=== PATIENT | female | born 1985 | race Two or more races ===

== ENCOUNTER 2018-10-21 10:59 | Emergency (ER) | payer OTHER ==
[2018-10-21 11:13] VITALS: BMI 23.7
--- NOTE | 2018-10-21 12:20 | PDOC ---
History of Present Illness - General Chief Complaint: Headache Stated Complaint: DIZZINESS Time Seen by Provider: 10/21/18 12:06 History Source: Patient, Sibling Exam Limitations: Language Barrier (Chadian only, translation via sister) - History of Present Illness Initial Comments: 33 yo , currently 12 weeks , presenting with neck pain. Chadian speaking only, translation via sister. Woke up out of sleep around 0330 this morning with the neck pain and occipital headache, later developed nausea and vomiting X6 around 0800. Patient went to Urgent Care around 0900 and was told she had "palpitations and high blood pressure", referred to the ED. Has had intermittent nausea and vomiting for the past 2 weeks with poor oral intake despite taking a nausea medication that her OBGYN gave her every day. Endorses dizziness that feels like "the room is spinning" and is triggered by sitting up quickly. Denies any tingling in her fingers, neurological deficits or weakness, diarrhea/ constipation, CP, SOB, abdominal pain, vaginal bleeding, fevers/chills, or recent illness. 10/21/18 12:21 Past History - Past Medical History Allergies/Adverse Reactions: Allergies Allergy/AdvReac Type Severity Reaction Status Date / Time Penicillins Allergy Verified 10/21/18 12:55 Home Medications: Ambulatory Orders Nitrofurantoin Monohyd/M-Cryst [Macrobid -] 100 mg PO BID #14 capsule 10/21/18 Prenat 115/Iron Fum/Folic/Dss [ 19 Tablet] 1 each PO DAILY 10/21/18 COPD: No Thyroid Disease: No - Surgical History Cholecystectomy: Yes - Immunization History Immunization Up to Date: Yes - Suicide/Smoking/Psychosocial Hx Smoking History: Never smoked Information on smoking cessation initiated: No Hx Alcohol Use: No Drug/Substance Use Hx: No Neuro Specific PMHX - Complaint Specific PMHX Glaucoma: No Herniated Disk: No Laminectomy: No Migraine: No Multiple Sclerosis: No Neuropathy: No TIA: No Review of Systems - Review of Systems Able to Perform ROS?: Yes Is the patient limited Syriac proficient: Yes Constitutional: No: Chills, Fever HEENTM: No: Eye Pain, Blurred Vision, Recent change in vision, Double Vision, Ear Discharge, Nose Pain, Tinnitus, Hearing Loss, Throat Swelling, Mouth Pain Respiratory: No: Cough, Orthopnea, Shortness of Breath Cardiac (ROS): No: Chest Pain, Lightheadedness ABD/GI: Yes: Nausea, Poor Fluid Intake, Vomiting. No: Constipated, Diarrhea : No: Burning, Dysuria, Discharge, Frequency Musculoskeletal: Yes: Neck Pain (occipital down through cervical spine only) Neurological: Yes: Headache (occipital), Dizziness ("room is spinning", triggered by standing quickly). No: Numbness, Paresthesia, Pre-Existing Deficit , Seizure, Tingling, Weakness, Ataxia *Physical Exam - Vital Signs Last Vital Signs Temp Pulse Resp BP Pulse Ox 98.5 F 114 H 16 113/70 98 10/21/18 11:09 10/21/18 11:09 10/21/18 11:09 10/21/18 11:09 10/21/18 11:09 - Physical Exam General Appearance: Yes: Appropriately Dressed HEENT: positive: EOMI, HAMMAD, Normal ENT Inspection, Normal Voice, Symmetrical, Pharynx Normal Neck: positive: Trachea midline, Normal Thyroid Respiratory/Chest: positive: Lungs Clear, Normal Breath Sounds. negative: Respiratory Distress Cardiovascular: positive: Regular Rhythm, Tachycardia, Other (sinus arrhythmia) Gastrointestinal/Abdominal: positive: Normal Bowel Sounds, Soft. negative: Tender Musculoskeletal: positive: Normal Inspection, Other (cervical spine tenderness) . negative: CVA Tenderness Extremity: positive: Normal Inspection, Normal Range of Motion Integumentary: positive: Normal Color, Dry, Cold Neurologic: positive: sales utility representative II-XII NML intact, Fully Oriented, Alert, Normal Mood/ Affect, Normal Response, Motor Strength 5/5, Responsive, Finger to Nose (intact) . negative: Facial Droop, Sensory Deficit, Confused, Disoriented ED Treatment Course - LABORATORY CBC & Chemistry Diagram: 10/21/18 12:34 10/21/18 12:34 Medical Decision Making - Medical Decision Making EKG reviewed, NSR, HR 75, no STEMI. 10/21/18 12:07 Dizziness seems consistent with orthostatic hypotension in s/o poor oral intake , N/V, and with elevated HR. Will give 1L NS, 1000mg acetaminophen for ESPINAL/neck pain, Zofran 4mg IVpush, also get CBC CMP UA/UC. 10/21/18 12:44 UA reviewed, prescribed Macrobid BID for a week, sent script to patient's pharmacy. 10/21/18 13:22 CMP reviewed, Glucose 70 10/21/18 13:25 Patient drinking some apple juice and eating some honey latesha crackers. Will hold off on repleting glucose. 10/21/18 13:29 WBC 10.4 10/21/18 13:56 *DC/Admit/Observation/Transfer Diagnosis at time of Disposition: UTI (urinary tract infection) - Discharge Dispostion Disposition: HOME Condition at time of disposition: Improved Decision to Admit order: No - Prescriptions Prescriptions: Nitrofurantoin Monohyd/M-Cryst [Macrobid -] 100 mg PO BID #14 capsule - Referrals Referrals: Georgia Koenig MD [Primary Care Provider] - - Patient Instructions Printed Discharge Instructions: Managing Symptoms of , DI for Urinary Tract Infection (UTI) Additional Instructions: Please take your Macrobid twice a day for one full week. Please follow up with your primary care doctor. Do your best to remain hydrated. Return to the ED for abdominal pain, vaginal bleeding, or nausea and vomiting that does not respond to medications. - Post Discharge Activity
[2018-10-21] MEDS ORDERED: ONDANSETRON 4 MG/2 ML VIAL IVPUSH ONE (12:30)
[2018-10-21] MEDS ORDERED: SODIUM CHLORIDE 500 ML IV STA (12:32)
[2018-10-21] MEDS ORDERED: ACETAMINOPHEN 1000 MG/100 ML VIAL (NON FORMULARY) IVPB ONE (12:32)
[2018-10-21 12:55] LABS: HEMOGLOBIN 12.4 GM/dL (10.7-15.3); MCH 31.3 pg (25.7-33.7); MCHC 35.5 g/dl (32.0-36.0); MEAN CELL VOLUME 88.1 fl (80-96); RBC 3.97 M/mm3 (3.60-5.2); RDW 11.6 % (11.6-15.6); WHITE BLOOD COUNT 10.4 K/mm3 (4.0-10.0)
[2018-10-21] MEDS ORDERED: ACETAMINOPHEN INJECTION 100 ML IVPB ONE (13:03)
[2018-10-21] MEDS ORDERED: ONDANSETRON 4 MG/2 ML VIAL ONE (13:04)
[2018-10-21] MEDS ORDERED: SODIUM CHLORIDE 1,000 ML IV STA (13:06)
[2018-10-21 13:15] LABS: EPI CELLS 4.5 /HPF (0-5/HPF); HYALINE CASTS 4 /lpf (0-8); PH,URINE 7.5 (5.0-8.0); URINE APPEARANCE CLEAR; URINE BACTERIA 835.2 /hpf (NEGATIVE); URINE BILIRUBIN NEGATIVE (NEGATIVE); URINE COLOR YELLOW; URINE GLUCOSE (UA) NEGATIVE (NEGATIVE); URINE KETONE 1+ (NEGATIVE); URINE LEUK ESTERASE 1+ (NEGATIVE); URINE NITRITE NEGATIVE (NEGATIVE); URINE PROTEIN NEGATIVE (NEGATIVE); URINE RBC 6 /hpf (0-4); URINE WBC 10 /hpf (0-5)
[2018-10-21 13:24] LABS: ALBUMIN 3.3 g/dl (3.4-5.0); BILIRUBIN,TOTAL 0.4 mg/dL (0.2-1); BLOOD UREA NITROGEN 5.7 mg/dL (7-18); CALCIUM 8.8 mg/dL (8.5-10.1); CREATININE 0.5 mg/dL (0.55-1.3); POTASSIUM 4.1 mmol/L (3.5-5.1); TOT PROT 6.8 g/dl (6.4-8.2)
[2018-10-21 13:46] LABS: PLATELET COUNT 233 K/MM3 (134-434)
--- NOTE | 2018-10-21 13:52 | PDOC ---
Documentation entered by Chong Garner SCRIBE, acting as scribe for Latonya Ruffin MD. Latonya Ruffin MD: This documentation has been prepared by the Patsy meek Elijah, SCRIBE, under my direction and personally reviewed by me in its entirety. I confirm that the documentation accurately reflects all work, treatment, procedures, and medical decision making performed by me. Attending Attestation - Resident Resident Name: TeresaFracisco - ED Attending Attestation I have performed the following: I have examined & evaluated the patient, The case was reviewed & discussed with the resident, I agree w/resident's findings & plan, Exceptions are as noted - HPI HPI: 10/21/18 13:51 Patient is a 33 year old female (13 weeks) with no reported significant past medical history who presents to the ED with neck pain that radiates all throughout the back of her neck lasting for x10 hours. Patient associates nausea , x6 episodes of vomiting, and dizziness and was seen at Urgent Care, found to have palpitations and was told to come into the ED. Patient also noted that she has had nausea and vomiting for the last two weeks. Denies Abdominal Pain. Allergies: Penicillins PCP: Dr. Koenig - Physicial Exam PE: GENERAL: Awake, alert, and fully oriented, in no acute distress. +Mild pallor HEAD: No signs of trauma EYES: PERRLA, EOMI, sclera anicteric, conjunctiva clear ENT: Auricles normal inspection, hearing grossly normal, nares patent, oropharynx clear without exudates. Dry mucosa NECK: Normal ROM, supple, no lymphadenopathy, JVD, or masses LUNGS: Breath sounds equal, clear to auscultation bilaterally. No wheezes, and no crackles HEART: Regular rate and rhythm, normal S1 and S2, no murmurs, rubs or gallops ABDOMEN: Soft, nontender, normoactive bowel sounds. No guarding, no rebound. No masses EXTREMITIES: Normal range of motion, no edema. No clubbing or cyanosis. No cords, erythema, or tenderness NEUROLOGICAL: Cranial nerves II through XII grossly intact. Normal speech, normal gait. Motor and sensation intact SKIN: Warm, dry, normal turgor, no rashes or lesions noted. - Medical Decision Making Pt appears dehydrated on exam, will rehydrate with NS and D5LR. Will treat with ofirmev for neck strain. Stable for DC home when improved.
[2018-10-21] MEDS ORDERED: DEXTROSE 5%-LACTATED RINGERS 1,000 ML IV SCH (14:00)
[2018-10-21 15:08] VITALS: BP 120/61; PULSE 90; TEMP 98.4
--- NOTE | 2018-10-22 10:30 | EKG ---
Test Reason : Blood Pressure : / mmHG Vent. Rate : 075 BPM Atrial Rate : 075 BPM P-R Int : 122 ms QRS Dur : 084 ms QT Int : 362 ms P-R-T Axes : 029 015 027 degrees QTc Int : 404 ms NORMAL SINUS RHYTHM CANNOT RULE OUT ANTERIOR INFARCT , AGE UNDETERMINED ABNORMAL ECG NO PREVIOUS ECGS AVAILABLE Confirmed by YECENIA ENGEL MD ([id number]) on 10/22/2018 10:30:09 AM Referred By: Confirmed By:YECENIA ENGEL MD
== END 2018-10-21 15:13 | disposition home or self-care (01) ==
LOC: JER 10:59
PROC: 3E0337Z Introduction of Electrolytic and Water Balance Substance into Peripheral Vein, Percutaneous Approach (ICD-10-PCS; principal; 2018-10-21)
PROC: 3E033NZ Introduction of Analgesics, Hypnotics, Sedatives into Peripheral Vein, Percutaneous Approach (ICD-10-PCS; 2018-10-21)
PROC: 3E033GC Introduction of Other Therapeutic Substance into Peripheral Vein, Percutaneous Approach (ICD-10-PCS; 2018-10-21)
DX: O26.891 Other specified pregnancy related conditions, first trimester (principal); O23.41 Unspecified infection of urinary tract in pregnancy, first trimester; Z3A.12 12 weeks gestation of pregnancy
CPT/HCPCS: 36415; 80053; 81003; 85027; 87086; 93005; 93010; 96361; 96374; 96375; 99282-25; J0131

== ENCOUNTER 2019-04-13 12:50 | Inpatient (IN) | payer OTHER ==
[2019-04-13] MEDS ORDERED: CITRIC ACID/SODIUM CITRATE 30 ML UNIT-DOSE CUP PO ONE (13:51)
[2019-04-13] MEDS ORDERED: ELECTROLYTE-148 SOLN 500 ML IV ONE (13:51)
[2019-04-13] MEDS ORDERED: ELECTROLYTE-148 SOLN 1,000 ML IV SCH (14:00)
[2019-04-13] MEDS ORDERED: ONDANSETRON 4 MG/2 ML VIAL IVPUSH PRN (14:01)
[2019-04-13 14:03] VITALS: BMI 28.8
[2019-04-13 14:36] LABS: BASO % 0.8 % (0-2.0); EOS % 0.8 % (0-4.5); HEMATOCRIT 39.1 % (32.4-45.2); HEMOGLOBIN 12.9 GM/dL (10.7-15.3); LYMPH % 27.1 % (8-40); MCH 28.4 pg (25.7-33.7); MEAN PLT VOLUME 10.6 fl (7.5-11.1); MONO % 6.6 % (3.8-10.2); NEUT % 64.7 % (42.8-82.8); PLATELET COUNT 181 K/MM3 (134-434); RBC 4.54 M/mm3 (3.60-5.2); RDW 13.7 % (11.6-15.6); WHITE BLOOD COUNT 8.5 K/mm3 (4.0-10.0)
[2019-04-13 14:56] LABS: INR 0.95 (0.83-1.09); PROTHROMBIN TIME (PATIENT) 11.2 SEC (9.7-13.0)
[2019-04-13 14:59] LABS: ACTIVATED PTT 29.1 SECONDS (25.2-36.5)
[2019-04-13] MEDS ORDERED: KETOROLAC TROMETHAMINE 30 MG/1 ML VIAL ONE (15:15)
[2019-04-13] MEDS ORDERED: ceFAZolin SODIUM 1 GM VIAL ONE (15:15)
--- NOTE | 2019-04-13 15:22 | HP ---
Past Medical History - Primary Care Physician PCP:: Trung Rojas - Admission Chief Complaint: mildly elevated BP History of Present Illness: Patient denies any headache, CP, SOB, n/v, RUQ pain. 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: Alzheimer's, CVA, Dementia, Migraine, Multiple Sclerosis, Peripheral Neuropathy, Parkinson's, Seizure, Syncope, TIA, Vertigo, Other Cardiovascular: No: AFIB, Aneurysm, Aortic Insufficiency, Aortic Stenosis, CAD, CHF, Deep Vein Thrombosis, HTN, Hyperlipdemia, AK, Mitral Insufficiency, Mitral Stenosis, Murmur, Pulmonary Hypertension, Other Pulmonary: No: Asthma, Bronchitis, Cancer, COPD, O2 Dependent, Pneumonia, Previously Intubated, Pulmonary Embolus, Pulmonary Fibrosis, Sleep Apnea, Other Gastrointestinal: No: Ascites, Cancer, Constipation, Crohn's Disease, Diverticulitis, Diverticulosis, Esophageal Varices, Gastritis, GERD, GI Bleed, Hemorrhoids, Hiatal Hernia, Inflamatory Bowel Disease, Irritable Bowel Disease, Pancreatitis, Peptic Ulcer Disease, Ulcerative Colitis, Other Hepatobiliary: No: Cirrhosis, Cholelithiasis, Cholecystitis, Choledocholithiasis , Hepatitis A, Hepatitis B, Hepatitis C, Other Renal/: No: Renal Failure, Renal Inusuff, BPH, Cancer, Hematuria, Hemodialysis , Neurogenic Bladder, Renal Calculi, UTI, Other Reproductive: No: Ectopic , Endometriosis, Fibroids, PID, Polycystic Ovary Syndrome, Postmenopausal, Other ...: 3 ...Para: 1 ...Term: 1 ...: 0 ...Spon : 1 ...Induced : 0 ...Multiple Gestation: 0 ...LMP: 07/11/18 ... Weeks Gestation by Dates: 39.3 ...EDC by Dates: 04/17/19 ...EDC by Sono: 05/03/19 Heme/Onc: No: Anemia, B12 Deficiency, Bleeding Disorder, Cancer, Current Chemotherapy, Current Radiation Therapy, Hemochromatosis, Hypercoaguable State, Myeloproliferative Synd, Sickle Cell Disease, Sickle Cell Trait, Thrombocytopenia, Other Infectious Disease: No: AIDS, C-Diff, Herpes Zoster, HIV, MRSA, STD's, Tuberculosis, VREF, Other Psych: No: Addictions, Anxiety, Bipolar, Depression, Panic, Psychosis, Schizophrenia, Other Musculoskeletal: No: Bursitis, Chronic low back pain, Hemiparesis, Hemiplegia, Osteoarthritis, Paraplegia, Other ENT: No: Allergic Rhinitis, Sinusitis, Other Endocrine: No: Naubinway's Disease, Rosa's Disease, Diabetes Insipidus, Diabetes Mellitus, Hyperparathyroidism, Hyperthyroidism, Hypothyroidism, Osteopenia, SIADH, Other Dermatology: No: Basal Cell, Cellulitis, Eczema, Melanoma, Psoriasis, Squamous Cell, Other - Past Surgical History Past Surgical History: Yes: Cholecystectomy, Hx Myomectomy: No Hx Transabdominal Cerclage: No - Smoking History Smoking history: Never smoked Have you smoked in the past 12 months: No - Alcohol/Substance Use Hx Alcohol Use: No Home Medications - Allergies Allergies/Adverse Reactions: Allergies Allergy/AdvReac Type Severity Reaction Status Date / Time Penicillins Allergy Severe Swelling Verified 04/13/19 13:25 - Home Medications Home Medications: Ambulatory Orders Prenat 115/Iron Fum/Folic/Dss [ 19 Tablet] 1 each PO DAILY 10/21/18 Family Medical History Family History: Unable to Obtain Review of Systems - Review of Systems Constitutional: reports: No Symptoms Eyes: reports: No Symptoms HENT: reports: No Symptoms Neck: reports: No Symptoms Cardiovascular: reports: No Symptoms Respiratory: reports: No Symptoms Gastrointestinal: reports: No Symptoms Genitourinary: reports: No Symptoms Breasts: reports: No Symptoms Reported Musculoskeletal: reports: No Symptoms Integumentary: reports: No Symptoms Neurological: reports: No Symptoms Endocrine: reports: No Symptoms Hematology/Lymphatic: reports: No Symptoms Psychiatric: reports: No Symptoms Physical Exam - Maternity Vital Signs: Vital Signs Temperature 98.0 F 04/13/19 15:01 Pulse Rate 77 04/13/19 15:01 Respiratory Rate 18 04/13/19 15:01 Blood Pressure 129/95 04/13/19 15:01 O2 Sat by Pulse Oximetry (%) Constitutional: Yes: Well Nourished Eyes: Yes: WNL HENT: Yes: Atraumatic Neck: Yes: Supple Cardiovascular: Yes: Regular Rate and Rhythm Breast(s): Yes: Other (deferred) - Abdominal Exam/OB Number of Fetuses: Single Presentation: Vertex Contractions: Yes Regularity: Irregular Intensity: Unaware Monitor Mode: External Heart Rate (range): 135 Category: I Accelerations: Uniform Decelerations: None - Vaginal Exam/OB Vaginal Bleediing: No - Physical Exam Musculoskeletal: Yes: WNL, Muscle Weakness Edema: Yes Edema: LLE: Trace, RLE: Trace Integumentary: Yes: WNL ...Motor Strength: WNL Psychiatric: Yes: Alert, Oriented - Labs Lab Results: CBC, BMP 04/13/19 14:01 Imaging - Results Ultrasound: Report Reviewed Assessment/Plan 34 y/o @ 37.1wks, prior CS x1 desiring repeat, GHTN and BP in mild range, asymptomatic, reassuring status, declined BTL. Risks and complications of procedure discussed as well as indication for early term delivery. All questions answered and informed consent obtained -Proceed with CD
[2019-04-13] MEDS ORDERED: OXYTOCIN 20 UNITS in 0.9% NS 40 UNIT/2,000 ML INFUS.BAG IV ONE (15:44)
[2019-04-13 16:14] LABS: ALBUMIN 2.6 g/dl (3.4-5.0); BILIRUBIN,TOTAL 0.4 mg/dL (0.2-1); BLOOD UREA NITROGEN 10.2 mg/dL (7-18); CALCIUM 9.1 mg/dL (8.5-10.1); CREATININE 0.9 mg/dL (0.55-1.3); POTASSIUM 4.6 mmol/L (3.5-5.1); TOT PROT 6.7 g/dl (6.4-8.2)
--- NOTE | 2019-04-13 16:42 | PN ---
Progress Note (short form) - Note Progress Note: Attended Rpt. C/S for this 34yrs old mother for GHTN Mat PNL- nl GBS- neg delivered - clear fluid, cried soon after suctioned/ dried cord 3V 9/9, CAN x 1 's PE exam; alert active- not in distress HEENT- nl AFOF Chest B/l symm COR S1-S2 nl nlo heart murmur nl female Testis down Ext: FROM Neuro: Good tone and activity. RNBC Watch for resp distrtess Encourage BF/ Bonding Problem List - Problems (1) 37 weeks gestation of Code(s): Z3A.37 - 37 WEEKS GESTATION OF (2) Gestational hypertension Code(s): O13.9 - GESTATIONAL HTN W/O SIGNIFICANT PROTEINURIA, UNSP TRIMESTER
[2019-04-13] MEDS ORDERED: IBUPROFEN 600 MG TABLET (FP) PO PRN (17:14)
[2019-04-13] MEDS ORDERED: IBUPROFEN 800 MG/8 ML IJ IVPB PRN (17:14)
--- NOTE | 2019-04-13 17:43 | OP ---
Operative Note - Note: Operative Date: 04/13/19 (dict # [id number]) Pre-Operative Diagnosis: P1 @ 37.1 wks PEC w/o severe features, previous CD desiring repeat Operation: RLTCS Findings: see dictation Post-Operative Diagnosis: Same as Pre-op Surgeon: Trung Rojas Methods Specialist Engineer: Jareth Ferguson Anesthesia: Spinal Estimated Blood Loss (mls): 700 Fluid Volume Replaced (mls): 1,000 Operative Report Dictated: Yes
[2019-04-13] MEDS ORDERED: METHYLERGONOVINE MALEATE 0.2 MG/1 ML AMP IM ONE (18:05)
[2019-04-13] MEDS ORDERED: SODIUM CHLORIDE 1,000 ML IV SCH (18:15)
[2019-04-13] MEDS ORDERED: hydrALAZINE HCL 20 MG/ML VIAL IVPUSH ONE (19:21)
[2019-04-13] MEDS: LABETALOL HCL 200 MG TABLET (FP) PO SCH ×2 (19:40→22:45)
--- NOTE | 2019-04-13 19:49 | PN ---
Progress Note (short form) - Note Progress Note: 5 mg IV hydralazine and 200mg PO labetalol administered for severe range BP following Methergine. Patient is asymptomatic and bleeding has subsided. Magnesium will be held due to iatrogenic severe hypertension. BP will be monitored closely.
[2019-04-13] MEDS ORDERED: METHYLERGONOVINE MALEATE 0.2 MG TABLET (FP) PO SCH (22:15)
[2019-04-13] MEDS ORDERED: LABETALOL HCL 200 MG TABLET (FP) ONE (23:17)
[2019-04-14] MEDS: OXYTOCIN 20 UNITS in 0.9% NS 20 UNIT/1,000 ML INFUS.BAG IV SCH ×2 (05:28→19:33)
--- NOTE | 2019-04-14 07:18 | PN ---
Post Progress Note - Subjective Subjective: not yet ambulating, stuart in place, lochia decreased, passing flatus, no n/v Type of Delivery: Repeat C/S Vital Signs: Vital Signs Temperature 97.8 F 04/14/19 06:00 Pulse Rate 54 L 04/14/19 06:00 Respiratory Rate 18 04/14/19 06:00 Blood Pressure 131/72 04/14/19 06:00 O2 Sat by Pulse Oximetry (%) Breast Exam: Yes: Other (deferred) Uterus: Yes: Fundus Firm Incision: Yes: Dressing dry and intact, Sutures intact Abdomen/GI: Yes: Abdomen soft, Passing flatus (slightly distended, + BS) Lochia, amount: Moderate Extremities: Yes: Calves non-tender Perineum: Yes: Intact Activity: Other - Labs Labs: CBC WBC 8.5 K/mm3 (4.0-10.0) 04/13/19 14:01 RBC 4.54 M/mm3 (3.60-5.2) 04/13/19 14:01 Hgb 12.9 GM/dL (10.7-15.3) 04/13/19 14:01 Hct 39.1 % (32.4-45.2) 04/13/19 14:01 MCV 86.0 fl (80-96) 04/13/19 14:01 MCH 28.4 pg (25.7-33.7) 04/13/19 14:01 MCHC 33.0 g/dl (32.0-36.0) 04/13/19 14:01 RDW 13.7 % (11.6-15.6) D 04/13/19 14:01 Plt Count 181 K/MM3 (134-434) 04/13/19 14:01 MPV 10.6 fl (7.5-11.1) D 04/13/19 14:01 Absolute Neuts (auto) 5.5 K/mm3 (1.5-8.0) 04/13/19 14:01 Neutrophils % 64.7 % (42.8-82.8) 04/13/19 14:01 Lymphocytes % 27.1 % (8-40) 04/13/19 14:01 Monocytes % 6.6 % (3.8-10.2) 04/13/19 14:01 Eosinophils % 0.8 % (0-4.5) 04/13/19 14:01 Basophils % 0.8 % (0-2.0) 04/13/19 14:01 Nucleated RBC % 0 % (0-0) 04/13/19 14:01 Assessment/Plan POD # 1 in stable condition, S/P RCD due to PEC w/o severe features, S/P iatrogenic severe BPs and BPs now in normal range on PO antihypertensives. Am labs Encourage ambulation Advance diet Stuart out Continue PO labetalol
[2019-04-14 08:26] LABS: BASO % 0.3 % (0-2.0); EOS % 0.3 % (0-4.5); HEMATOCRIT 30.2 % (32.4-45.2); HEMOGLOBIN 10.2 GM/dL (10.7-15.3); LYMPH % 14.9 % (8-40); MCH 28.7 pg (25.7-33.7); MCHC 33.7 g/dl (32.0-36.0); MEAN CELL VOLUME 85.1 fl (80-96); MEAN PLT VOLUME 10.2 fl (7.5-11.1); MONO % 4.7 % (3.8-10.2); NEUT % 79.8 % (42.8-82.8); PLATELET COUNT 139 K/MM3 (134-434); RBC 3.55 M/mm3 (3.60-5.2); RDW 13.8 % (11.6-15.6); WHITE BLOOD COUNT 10.2 K/mm3 (4.0-10.0)
[2019-04-14 08:58] LABS: ALBUMIN 1.8 g/dl (3.4-5.0); BILIRUBIN,TOTAL 0.8 mg/dL (0.2-1); BLOOD UREA NITROGEN 6.2 mg/dL (7-18); CALCIUM 7.9 mg/dL (8.5-10.1); CREATININE 0.7 mg/dL (0.55-1.3); POTASSIUM 4.3 mmol/L (3.5-5.1); TOT PROT 4.7 g/dl (6.4-8.2)
[2019-04-14] MEDS: LABETALOL HCL 200 MG TABLET (FP) PO SCH ×2 (09:28→21:48)
--- NOTE | 2019-04-14 13:31 | OP ---
DATE OF OPERATION: DATE OF DICTATION: 04/13/2019 PREOPERATIVE DIAGNOSIS: 34-year-old para 1 at 37 and 1 weeks' gestation, preeclampsia without severe features, previous section desiring repeat delivery. Declined sterilization. POSTOPERATIVE DIAGNOSIS: 34-year-old para 1 at 37 and 1 weeks' gestation, preeclampsia without severe features, previous section desiring repeat delivery. Declined sterilization. PROCEDURE: Repeat low transverse section. COMPLICATIONS: None. ATTENDING: Dougie Aguillon MD STREET ENGINEER: DAPHNEY Maddox ANESTHESIA: Spinal. ESTIMATED BLOOD LOSS: 700 mL. INTRAVENOUS FLUIDS: 1 L of crystalloid. FINDINGS: Anterior abdominal wall anatomy consistent with prior section. Moderate amount of subcutaneous adipose tissue. The fascia was nonfibrotic, nonadherent to the underlying rectus muscles. The rectus muscles fused to each other in the midline. No parietal peritoneal visceral adhesions. The bladder was adherent to the lower uterine segment. Bladder dome and rectus muscle fascial interface were intact at the conclusion of the procedure. Infant in cephalic presentation. Clear amniotic fluid. Live viable female. Uterus and bilateral tubes and ovaries consistent with normal anatomy. The ovaries were bilaterally polycystic. DESCRIPTION OF PROCEDURE: The patient was taken to the operating room where anesthesia was found to be adequate. She was then prepped and draped in a normal sterile fashion. Urinary Chan catheter was placed atraumatically. Appropriate time-out took place. Pfannenstiel skin incision was made with a scalpel following prior section scar. Incision was carried to the underlying fascia with the Bovie. The fascia was incised in the midline and incision extended laterally with sharp dissection. The underlying rectus muscles were dissected off sharply. The rectus muscles were elevated at the midline and dissected off sharply and superiorly. Incidental entry to the peritoneal cavity revealed no visceral parietal peritoneal adhesions. The incision was extended laterally with blunt and sharp dissection. Bladder blade was placed in the lower uterine segment, was slightly effaced. Transverse lower uterine segment incision was made with a scalpel approximately 5 cm above the vesicouterine junction. The incision was extended laterally with blunt dissection. Amniotomy revealed clear amniotic fluid. was delivered through the surgical incision with mild fundal pressure without difficulty. Delayed umbilical cord clamping took place, and the infant was handed off to the NICU staff. The placenta was delivered manually and intact. The uterus was exteriorized through the surgical incision, and the intrauterine cavity was cleared of all clots and debris. The lower uterine segment incision was reapproximated with 1-0 Polysorb running, locked suture. Excellent structural reapproximation and hemostasis with 1-layer suture. The uterus was internalized to the pelvic cavity, and gutters were cleared of all clots and debris. Inspection of the uterine incision once again revealed excellent hemostasis. Bladder dome and rectus muscle fascial interface as described previously. Fascial incision was reapproximated with 0 Polysorb running, nonlocked suture. Excellent structural reapproximation achieved and confirmed by digital palpation by the surgeon. Subcutaneous tissues were copiously irrigated and bleeders neutralized with Bovie cautery. The skin incision was reapproximated with 4-0 Biosyn subcuticular sutures. Excellent reapproximation hemostasis achieved. Patient in stable condition to the recovery room. Instrument count was reported as correct x2 by the staff. ODUGIE AGUILLON MD [id number] [facility] CENTEREdson
[2019-04-14] MEDS ORDERED: BISACODYL 10 MG SUPP.RECT RC PRN (17:14)
[2019-04-14] MEDS: SIMETHICONE 80 MG TAB.CHEW (FP) PO PRN (19:41)
[2019-04-14] MEDS: ACETAMINOPHEN 325 MG TABLET (FP) PO PRN (19:42)
[2019-04-14] MEDS: oxyCODONE HCL 5 MG TABLET PO PRN (19:42)
--- NOTE | 2019-04-15 08:47 | PN ---
Post Progress Note - Subjective Subjective: pain scale 6/10 oob voiding without difficulty bm not done Post Day: 2 Type of Delivery: Repeat C/S Vital Signs: Vital Signs Temperature 98.4 F 04/14/19 22:00 Pulse Rate 109 H 04/15/19 06:00 Respiratory Rate 18 04/15/19 06:00 Blood Pressure 131/79 04/15/19 06:00 O2 Sat by Pulse Oximetry (%) Breast Exam: Yes: Soft, Other (BF ). No: Engorged Uterus: Yes: Fundus Firm, Fundus below umbilicus, Non-tender Incision: Yes: Sutures intact (ster). No: Redness, Oozing Abdomen/GI: Yes: Abdomen soft, Passing flatus, Tolerating PO (diet). No: Abdominal Distention, Tender Lochia: Yes: Rubra Lochia, amount: Moderate Extremities: Yes: Calves non-tender Perineum: Yes: Intact Activity: Ambulating - Labs Labs: CBC WBC 10.2 K/mm3 (4.0-10.0) H 04/14/19 07:53 RBC 3.55 M/mm3 (3.60-5.2) L 04/14/19 07:53 Hgb 10.2 GM/dL (10.7-15.3) L 04/14/19 07:53 Hct 30.2 % (32.4-45.2) L D 04/14/19 07:53 MCV 85.1 fl (80-96) 04/14/19 07:53 MCH 28.7 pg (25.7-33.7) 04/14/19 07:53 MCHC 33.7 g/dl (32.0-36.0) 04/14/19 07:53 RDW 13.8 % (11.6-15.6) 04/14/19 07:53 Plt Count 139 K/MM3 (134-434) D 04/14/19 07:53 MPV 10.2 fl (7.5-11.1) 04/14/19 07:53 Absolute Neuts (auto) 8.1 K/mm3 (1.5-8.0) H 04/14/19 07:53 Neutrophils % 79.8 % (42.8-82.8) D 04/14/19 07:53 Lymphocytes % 14.9 % (8-40) D 04/14/19 07:53 Monocytes % 4.7 % (3.8-10.2) 04/14/19 07:53 Eosinophils % 0.3 % (0-4.5) 04/14/19 07:53 Basophils % 0.3 % (0-2.0) 04/14/19 07:53 Nucleated RBC % 0 % (0-0) 04/14/19 07:53 Problem List - Problems (1) examination following delivery Code(s): Z39.2 - ENCOUNTER FOR ROUTINE FOLLOW-UP Assessment/Plan stable. ct po care pt requests for stool softner
[2019-04-15] MEDS: ACETAMINOPHEN 325 MG TABLET (FP) PO PRN ×2 (09:20→22:37)
[2019-04-15] MEDS: oxyCODONE HCL 5 MG TABLET PO PRN (09:20)
[2019-04-15] MEDS: SIMETHICONE 80 MG TAB.CHEW (FP) PO PRN (09:21)
[2019-04-15] MEDS: LABETALOL HCL 200 MG TABLET (FP) PO SCH ×2 (09:21→22:37)
--- NOTE | 2019-04-16 06:31 | PN ---
Post Progress Note - Subjective Subjective: Pain controlled. No fevers/chills. Ambulating w/o difficulty Post Day: 3 Type of Delivery: Repeat C/S Vital Signs: Vital Signs Temperature 98.3 F 04/16/19 06:00 Pulse Rate 77 04/16/19 06:00 Respiratory Rate 20 04/16/19 06:00 Blood Pressure 136/89 04/16/19 06:00 O2 Sat by Pulse Oximetry (%) Uterus: Yes: Fundus below umbilicus Incision: Yes: Dressing dry and intact Abdomen/GI: Yes: Abdomen soft, Passing flatus, Tolerating PO Lochia, amount: Small Extremities: Yes: Calves non-tender Activity: Ambulating - Labs Labs: CBC WBC 10.2 K/mm3 (4.0-10.0) H 04/14/19 07:53 RBC 3.55 M/mm3 (3.60-5.2) L 04/14/19 07:53 Hgb 10.2 GM/dL (10.7-15.3) L 04/14/19 07:53 Hct 30.2 % (32.4-45.2) L D 04/14/19 07:53 MCV 85.1 fl (80-96) 04/14/19 07:53 MCH 28.7 pg (25.7-33.7) 04/14/19 07:53 MCHC 33.7 g/dl (32.0-36.0) 04/14/19 07:53 RDW 13.8 % (11.6-15.6) 04/14/19 07:53 Plt Count 139 K/MM3 (134-434) D 04/14/19 07:53 MPV 10.2 fl (7.5-11.1) 04/14/19 07:53 Absolute Neuts (auto) 8.1 K/mm3 (1.5-8.0) H 04/14/19 07:53 Neutrophils % 79.8 % (42.8-82.8) D 04/14/19 07:53 Lymphocytes % 14.9 % (8-40) D 04/14/19 07:53 Monocytes % 4.7 % (3.8-10.2) 04/14/19 07:53 Eosinophils % 0.3 % (0-4.5) 04/14/19 07:53 Basophils % 0.3 % (0-2.0) 04/14/19 07:53 Nucleated RBC % 0 % (0-0) 04/14/19 07:53 Assessment/Plan 34yo s/p RLTCS, POD#3 Routine PP care PO pain control Cont HTN meds, stable for now D/C to home POD#4 Yola Alexander MD
--- NOTE | 2019-04-16 08:47 | DS ---
Physical Examination Vital Signs: Vital Signs Temperature 98.3 F 04/16/19 06:00 Pulse Rate 77 04/16/19 06:00 Respiratory Rate 20 04/16/19 06:00 Blood Pressure 136/89 04/16/19 06:00 O2 Sat by Pulse Oximetry (%) Labs: CBC, BMP 04/14/19 07:53 04/14/19 06:00 Discharge Summary Problems reviewed: Yes Reason For Visit: Current Active Problems 37 weeks gestation of (Acute) Gestational hypertension (Acute) examination following delivery (Acute) Procedures: Principal: Repeat Hospital Course: Patient presented for a scheduled Repeat She had an uncomplicated repeat She met all milestones She was discharged home on POD#3 Sherice. MD Catherine Condition: Stable - Instructions Diet, Activity, Other Instructions: Return to regular diet as tolerated. regular activity as cleared by provider. Call MD with any questions or concerns, follow up in 1 week from discharge. Referrals: Trung Rojas MD [Staff Physician] - Disposition: HOME - Home Medications Comprehensive Discharge Medication List: Ambulatory Orders Prenat 115/Iron Fum/Folic/Dss [ 19 Tablet] 1 each PO DAILY 10/21/18 Acetaminophen [Tylenol] 650 mg PO Q6H PRN #30 capsule MDD 6 04/14/19 Ibuprofen 600 mg PO Q6H PRN #30 tablet 04/14/19 Oxycodone HCl 5 mg PO Q6H PRN 3 Days #12 tablet MDD 5 04/14/19
[2019-04-16 08:50] VITALS: BP 113/86; PULSE 112; TEMP 97.9
[2019-04-16 09:11] LABS: BASO % 0.5 % (0-2.0); EOS % 1.8 % (0-4.5); HEMATOCRIT 29.7 % (32.4-45.2); HEMOGLOBIN 9.9 GM/dL (10.7-15.3); LYMPH % 9.5 % (8-40); MCH 28.6 pg (25.7-33.7); MCHC 33.5 g/dl (32.0-36.0); MEAN CELL VOLUME 85.5 fl (80-96); MEAN PLT VOLUME 9.4 fl (7.5-11.1); NEUT % 84.2 % (42.8-82.8); PLATELET COUNT 206 K/MM3 (134-434); RBC 3.47 M/mm3 (3.60-5.2); RDW 14.3 % (11.6-15.6); WHITE BLOOD COUNT 15.6 K/mm3 (4.0-10.0)
[2019-04-16] MEDS: LABETALOL HCL 200 MG TABLET (FP) PO SCH (09:30)
[2019-04-16] MEDS: ACETAMINOPHEN 325 MG TABLET (FP) PO PRN (10:49)
--- NOTE | 2019-04-16 12:08 | PATH ---
Surgical Pathology Report Patient Name: KIERAN STAPLES Med. Rec. 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 Electronically Signed Heide Cramer M.D. Gross Description The specimen is received fresh labeled placenta and is a 729 gram, 23.0 x 6.5 x 2.8 cm. placenta with attached membranes and umbilical cord. The attached membranes are vargas, translucent with focal opacities and insert marginally. The umbilical cord measures 35 cm. in length and averages 1.1 cm. in diameter. The cord inserts eccentrically, 4 cm. to the nearest margin. No true knots or strictures are identified. Cut surface of the umbilical cord reveals 3 vessels. The surface is kidd-blue with minimal fibrin deposition and appropriate caliber vessels. The maternal surface is red-brown with focal defects. Sectioning reveals red-brown, spongy parenchyma. No lesions are identified. Elevator Tender sections are submitted in three cassettes as follows: 1- membrane rolls and umbilical cord; 2-3- full thickness sections of placenta. /04/15/2019 [facility]/04/15/2019
== END 2019-04-16 12:00 | disposition home or self-care (01) | DRG 540 ==
LOC: JLDR 12:50 → J3W 23:25
PROVIDERS: ADMIT Student in an Organized Health Care Education/Training Program; ATTEND Student in an Organized Health Care Education/Training Program
PROC: 10D00Z1 Extraction of Products of Conception, Low, Open Approach (ICD-10-PCS; principal; 2019-04-13)
DX: O34.219 Maternal care for unspecified type scar from previous cesarean delivery (principal); O14.94 Unspecified pre-eclampsia, complicating childbirth; Z3A.37 37 weeks gestation of pregnancy; Z37.0 Single live birth
CPT/HCPCS: 36415; 80053; 82570; 84156; 85025; 85610; 85730; 86593; 86850; 86900; 86901; 87389; J7030

== ENCOUNTER 2019-05-04 15:02 | Emergency (ER) | payer OTHER ==
[2019-05-04 15:14] VITALS: BMI 30.2
[2019-05-04] MEDS ORDERED: ONDANSETRON *ODT* 4 MG TABLET SL ONE (15:14)
[2019-05-04] MEDS ORDERED: IBUPROFEN 600 MG TABLET (FP) PO ONE ×2 (15:14→16:59)
--- NOTE | 2019-05-04 15:14 | PDOC ---
Rapid Medical Evaluation Chief Complaint: Pain, Acute Time Seen by Provider: 05/04/19 15:11 Medical Evaluation: Allergies Allergy/AdvReac Type Severity Reaction Status Date / Time Penicillins Allergy Severe Swelling Verified 04/13/19 13:25 05/04/19 15:12 Pt c/o: fever, lower abd pain, no diarrhea, c section 21 days ago, + nausea Pt on brief exam: febrile, mid suprapubic tenderness, no cva tenderness pt ordered for: ua, u cx, motrin Pt to proceed to the ED Discharge Disposition - Diagnosis Fever Qualifiers: Fever type: due to other condition Qualified Code(s): R50.81 - Fever presenting with conditions classified elsewhere - Discharge Dispostion Disposition: HOME Condition at time of disposition: Stable - Referrals Referrals: Trung Rojas MD [Staff Physician] - 24 hours (Follow up in the clinic in 1-2 days) ON STAFF,NOT [Non Staff, Medical] - - Patient Instructions Printed Discharge Instructions: DI for Fever (Symptom) -- Adult Additional Instructions: Get plenty of rest and drink plenty of fluids. Take Tylenol for fever. You can take Motrin for headaches. Follow-up with Dr. Rojas tomorrow. Print Language: TAIWANESE - Post Discharge Activity
[2019-05-04] MEDS ORDERED: SODIUM CHLORIDE 1,000 ML IV STA (15:15)
[2019-05-04 15:58] LABS: BASO % 0.8 % (0-2.0); EOS % 3.3 % (0-4.5); HEMATOCRIT 34.3 % (32.4-45.2); HEMOGLOBIN 11.4 GM/dL (10.7-15.3); LYMPH % 15.7 % (8-40); MCH 28.2 pg (25.7-33.7); MCHC 33.4 g/dl (32.0-36.0); MEAN CELL VOLUME 84.6 fl (80-96); MEAN PLT VOLUME 7.9 fl (7.5-11.1); MONO % 6.5 % (3.8-10.2); NEUT % 73.7 % (42.8-82.8); PLATELET COUNT 430 K/MM3 (134-434); RBC 4.05 M/mm3 (3.60-5.2); RDW 15.3 % (11.6-15.6); WHITE BLOOD COUNT 9.7 K/mm3 (4.0-10.0)
[2019-05-04 16:11] LABS: ALBUMIN 3.2 g/dl (3.4-5.0); BILIRUBIN,TOTAL 0.5 mg/dL (0.2-1); BLOOD UREA NITROGEN 9.5 mg/dL (7-18); CALCIUM 8.7 mg/dL (8.5-10.1); CREATININE 0.6 mg/dL (0.55-1.3); POTASSIUM 4.3 mmol/L (3.5-5.1); TOT PROT 7.2 g/dl (6.4-8.2)
[2019-05-04] MEDS ORDERED: ONDANSETRON *ODT* 4 MG TABLET ONE (16:59)
--- NOTE | 2019-05-04 17:11 | PDOC ---
History of Present Illness - General Chief Complaint: Pain, Acute Stated Complaint: FEVER Time Seen by Provider: 05/04/19 15:11 History Source: Patient Exam Limitations: No Limitations - History of Present Illness Initial Comments: 05/04/19 17:09 Patient is a 34-year-old female who presents to the ED with complaint of headache and fever since yesterday. She states she has a T-max of 103F. She took Tylenol at 12 PM today. She denies any cough, sore throat or dysuria. She had a 25 days ago but denies any abdominal pain. She does admit to bilateral foot swelling with pain in her bilateral feet. She denies any dizziness. 05/04/19 18:23 Past History - Past Medical History Allergies/Adverse Reactions: Allergies Allergy/AdvReac Type Severity Reaction Status Date / Time Penicillins Allergy Severe Swelling Verified 04/13/19 13:25 Home Medications: Ambulatory Orders Prenat 115/Iron Fum/Folic/Dss [ 19 Tablet] 1 each PO DAILY 10/21/18 Asthma: No Cancer: No Cardiac Disorders: No COPD: No Diabetes: No HTN: Yes (gestational this pregancy) Seizures: No Thyroid Disease: No - Surgical History Cholecystectomy: Yes - Immunization History Immunization Up to Date: Yes - Psycho Social/Smoking Cessation Hx Smoking History: Never smoked Have you smoked in the past 12 months: No Information on smoking cessation initiated: No Hx Alcohol Use: No Drug/Substance Use Hx: No Hx Substance Use Treatment: No Review of Systems - Review of Systems Comments:: 05/04/19 18:24 - Review of Systems Able to Perform ROS?: Yes Constitutional: No: , Chills, Loss of Appetite, Night Sweats, Weakness, + Fever HEENTM: No: Eye Pain, Vision changes, Ear Pain, Throat Pain, Throat Swelling, Mouth Pain, Difficulty Swallowing Respiratory: No: Cough, Shortness of Breath, Wheezing, Sputum Production Cardiac (ROS): No: Chest Pain, Chest Tightness, Palpitations, Irregular Heart Beat, Edema ABD/GI: No: Nausea, Vomiting, Abdominal Pain, Diarrhea : No Dysuria, No Hematuria, No Frequency, No Urgency, No Vaginal Discharge/ Pain, No Penile Discharge/Pain Musculoskeletal: No: Muscle Pain, Back Pain, Joint Pain, Muscle Weakness, Neck Pain Integumentary: No: Lesions, Rash Neurological: No: , Numbness, Tingling, Weakness, Speech Difficulties, + Headache *Physical Exam - Vital Signs Last Vital Signs Temp Pulse Resp BP Pulse Ox 100.5 F H 115 H 18 129/87 100 05/04/19 15:11 05/04/19 15:11 05/04/19 15:11 05/04/19 15:11 05/04/19 15:11 - Physical Exam 05/04/19 18:25 - Physical Exam General Appearance: Nourished, Appropriately Dressed, No Distress HEENT: EOMI, Normal Voice, No Pharyngeal Erythema, No Muffled/Hoarse voice, No Tonsillar Exudate, No Tonsillar Erythema, No Nasal Congestion, No Rhinorrhea, Hearing Grossly Normal, TMs Normal, No TM Bulging, No TM Dullness, No TM Erythema Neck: Supple, No Lymphadenopathy (R), No Lymphadenopathy (L), No Rigidity, No Decreased range of motion; No nuchal rigidity, negative Kernig's and negative Brudzinski's Respiratory/Chest: Lungs Clear, Normal Breath Sounds. No Respiratory Distress, No Accessory Muscle Use Cardiovascular: Regular Rhythm, Regular Rate, S1, S2 Gastrointestinal/Abdominal: Normal Bowel Sounds, Soft. Non-tender, No Guarding , No Rebound, No Rigidity Musculoskeletal: Normal Inspection. No Decreased Range of Motion Extremity: Normal Capillary Refill, Normal Inspection; 1+ nonpitting edema b/l LE Integumentary: Normal Color, Dry. No Rash Neurologic: supervisor speech II-XII NML intact, Fully Oriented, Alert, Normal Mood/Affect, Normal Response ED Treatment Course - LABORATORY CBC & Chemistry Diagram: 05/04/19 15:30 05/04/19 15:30 - ADDITIONAL ORDERS Additional order review: Laboratory Results 05/04/19 05/04/19 15:30 15:30 Sodium 137 Potassium 4.3 Chloride 106 Carbon Dioxide 28 Anion Gap 4 L BUN 9.5 Creatinine 0.6 Est GFR (CKD-EPI)AfAm 136.87 Est GFR (CKD-EPI)NonAf 118.09 Random Glucose 90 Lactic Acid 0.9 Calcium 8.7 Total Bilirubin 0.5 AST 28 ALT 35 Alkaline Phosphatase 184 H Total Protein 7.2 Albumin 3.2 L 05/04/19 15:30 RBC 4.05 MCV 84.6 MCHC 33.4 RDW 15.3 MPV 7.9 D Neutrophils % 73.7 Lymphocytes % 15.7 D Monocytes % 6.5 Eosinophils % 3.3 D Basophils % 0.8 05/04/19 19:00 Laboratory Tests 05/04/19 15:20 Urine Color Yellow Urine Appearance Clear Urine pH 6.5 Ur Specific Dobbins 1.019 Urine Protein 1+ H Urine Glucose (UA) Negative Urine Ketones Negative Urine Blood 2+ H Urine Nitrite Negative Urine Bilirubin Negative Urine Urobilinogen 1.0 Ur Leukocyte Esterase Trace Urine WBC (Auto) 10 Urine RBC (Auto) 3 Urine Casts (Auto) 5 U Epithel Cells (Auto) 3.3 Urine Bacteria (Auto) 75.0 Medical Decision Making - Medical Decision Making 05/04/19 18:26 1754: paged build and deployment engineer, pending a call back 1826: paged Dr. Rojas again Pt is a 34 y/o female who presents to the ED with complaint of headache and fever since yesterday. She is 25 days post . She is low probability of meningismus. She has minimal b/l LE edema and has 1+ protein in her urine. Her BP is stable and not elevated. -Motrin PO -Zofran PO -labs -Dr. Crystal cervantes -Will reassess 05/04/19 18:[address] Bailey Who is covering for Dr. Rojas and she states she is not concerned about the 1+ protein in the urine. Since the patient's headache resolved with Motrin in the ED she would just continue to take Tylenol for the low-grade fever. Secondary to the patient having no nuchal rigidity and no elevated WBC count there is little concern for meningismus. The patient must follow-up with Dr. Rojas within the next 1 to 2 days for repeat evaluation. Discharge - Discharge Information Problems reviewed: Yes Clinical Impression/Diagnosis: Fever Qualifiers: Fever type: due to other condition Qualified Code(s): R50.81 - Fever presenting with conditions classified elsewhere Condition: Stable Disposition: HOME - Follow up/Referral Referrals: ON STAFF,NOT [Primary Care Provider] - Trung Rojas MD [Staff Physician] - 24 hours (Follow up in the clinic in 1-2 days) - Patient Discharge Instructions Patient Printed Discharge Instructions: DI for Fever (Symptom) -- Adult Additional Instructions: Get plenty of rest and drink plenty of fluids. Take Tylenol for fever. You can take Motrin for headaches. Follow-up with Dr. Rojas tomorrow. Print Language: OCCITAN - Post Discharge Activity
[2019-05-04 17:32] LABS: EPI CELLS 3.3 /HPF (0-5/HPF); HYALINE CASTS 5 /lpf (0-8); PH,URINE 6.5 (5.0-8.0); URINE APPEARANCE CLEAR; URINE BILIRUBIN NEGATIVE (NEGATIVE); URINE COLOR YELLOW; URINE GLUCOSE (UA) NEGATIVE (NEGATIVE); URINE KETONE NEGATIVE (NEGATIVE); URINE LEUK ESTERASE TRACE (NEGATIVE); URINE NITRITE NEGATIVE (NEGATIVE); URINE PROTEIN 1+ (NEGATIVE); URINE RBC 3 /hpf (0-4); URINE WBC 10 /hpf (0-5)
[2019-05-04 18:40] VITALS: BP 126/79; PULSE 83; TEMP 97.5
== END 2019-05-04 19:10 | disposition home or self-care (01) ==
LOC: JER 15:02
PROC: 3E0337Z Introduction of Electrolytic and Water Balance Substance into Peripheral Vein, Percutaneous Approach (ICD-10-PCS; principal; 2019-05-04)
DX: O86.4 Pyrexia of unknown origin following delivery (principal); O13.5 Gestational [pregnancy-induced] hypertension without significant proteinuria, complicating the puerperium; Z88.0 Allergy status to penicillin
CPT/HCPCS: 36415; 80053; 81003; 83605; 85025; 87040; 87086; 96360; 99283-25; J7030; Q0162